=== PATIENT | male | born 1995 ===

== ENCOUNTER 2022-07-05 11:18 | Emergency (ER) | payer OTHER ==
[~2022-07-05] VITALS: Ht 170.2 cm; Wt 68.0 kg
[~2022-07-05 11:18] MED LIST: FLEXERIL 10 MG PO; VOLTAREM 50 MG PO
== END 2022-07-05 18:52 | disposition home or self-care (01) ==
LOC: ER 11:18
DX: B34.9 Viral infection, unspecified (principal); K52.9 Noninfective gastroenteritis and colitis, unspecified; Z20.822 Contact with and (suspected) exposure to COVID-19; Z91.018 Allergy to other foods